=== PATIENT | male | born 1995 | race Caucasian/White ===

== ENCOUNTER 2017-03-16 12:15 | Emergency (ER) | payer OTHER ==
[~2017-03-16] VITALS: Ht 177.8 cm; Wt 94.3 kg
[2017-03-16 12:19] VITALS: BP 122/89
--- NOTE | 2017-03-16 13:13 | NUR ---
PT AMBULATED TO BED 7 AT THIS TIME.
--- NOTE | 2017-03-16 13:15 | NUR ---
22M BIB FAMILY C/O RIGHT INGUINAL AREA PAIN, ACHING, NON-RADIATING, 1/ X 2 DAYS; PT DENIES PAIN OR INJURY TO SITE AT THIS TIME; PT C/O CONSTIPATION X 3 DAYS, BUT DENIES VOMITING/DIARRHEA AT THIS TIME; ABDOMEN SOFT, NON-TENDER, ACTIVE BOWEL SOUNDS X 4 QUADRANTS; PT A&OX4, PERRLA, BL LUNG SOUNDS CLEAR, RR EVEN/UNLABORED, SKIN IS WARM/DRY/INTACT AT THIS TIME; STEADY GAIT; PT RESTING IN BED W/ HOB ELEVATED AND IN LOWEST POSITION; POSITIONED FOR COMFORT; ER MD MADE AWARE OF STATUS. WILL CONTINUE TO MONITOR.
--- NOTE | 2017-03-16 13:51 | NUR ---
ER MD DR. RAYMUNDO EVALUATING PT AT BEDSIDE.
--- NOTE | 2017-03-16 14:00 | NUR ---
PT TAKEN TO CT VIA W/C ACCOMPANIED BY [facility] AT THIS TIME.
[2017-03-16] MEDS ORDERED: ONDANSETRON 4 MG ODT PO ONE (14:40)
[2017-03-16] MEDS ORDERED: HYDROmorphone 1 MG/ML AMP IVP ONE (14:40)
--- NOTE | 2017-03-16 15:00 | NUR ---
Patient appears to be resting comfortably in bed. Vital Signs within normal limits. Respirations even and unlabored. NO ACUTE DISTRESS NOTED AT THIS TIME. WILL CONTINUE TO MONITOR
--- NOTE | 2017-03-16 15:00 | NUR ---
Note jennifer in ED - 03/16/17 at 1619 by MEDHARI RPatient appears to be resting comfortably in bed. Vital Signs within normal limits. Respirations even and unlabored. NO ACUTE DISTRESS NOTED AT THIS TIME. WILL CONTINUE TO MONITOR.
--- NOTE | 2017-03-16 16:18 | NUR ---
REPORT GIVEN TO NAOMY RETANA AT [facility] AT THIS TIME.
[2017-03-16 16:27] VITALS: BP 111/70
--- NOTE | 2017-03-16 16:27 | NUR ---
Patient to be transferred to [facility]. Is being transferred due to INSURANCE REQUEST. Receiving facility has accepting physician and available space. ER physician has signed transfer form. Patient or responsible alliance party has agreed to transfer and signed form. Patient belongings inventoried and will be sent with patient. Copy of nursing notes, lab reports, EKG, Physicians Orders and X-rays to be sent with patient. Report called to NAOMY RETANA at receiving facility. [facility] ambulance service has been called for transfer. [facility] TRANSFERRING PT VIA GURNEY TO [facility] AT THIS TIME.
== END 2017-03-16 16:27 | disposition short-term general hospital (02) ==
LOC: MED 12:15
DX: K35.80 Unspecified acute appendicitis (principal); K59.00 Constipation, unspecified
CPT/HCPCS: 36415; 74176; 80053; 81001; 82150; 83690; 85025; 96374; 99285; J1170; S0119

== ENCOUNTER 2023-04-30 13:17 | Emergency (ER) | payer OTHER ==
[~2023-04-30] VITALS: Ht 175.3 cm; Wt 119.7 kg
[2023-04-30 13:27] VITALS: BP 122/81; PULSE 84; RESP 16; TEMP 98.8; O2SAT 98
[2023-04-30] MEDS ORDERED: MAGN296S68 PO (13:30)
--- NOTE | 2023-04-30 13:41 | NUR ---
Patient discharged with v/s stable. Written and verbal after care instructions given and explained. Patient alert, oriented and verbalized understanding of instructions. Ambulatory with steady gait. All questions addressed prior to discharge. ID band removed. Patient advised to follow up with PMD. Rx of MAGNESIUM CITRATE given. Patient educated on indication of medication including possible reaction and side effects. Opportunity to ask questions provided and answered.
== END 2023-04-30 13:41 | disposition home or self-care (01) ==
LOC: MED 13:17
DX: K59.00 Constipation, unspecified (principal); Z79.899 Other long term (current) drug therapy
CPT/HCPCS: 99282

== ENCOUNTER 2023-05-04 21:16 | Emergency (ER) | payer OTHER ==
[~2023-05-04] VITALS: Ht 175.3 cm; Wt 120.2 kg
[~2023-05-04 21:16] MED LIST: MAGN296S68 PO
[2023-05-04 21:20] VITALS: BP 130/59; PULSE 90; RESP 17; TEMP 98.5; O2SAT 98
--- NOTE | 2023-05-04 21:23 | NUR ---
TO LOBBY A/ W BED AMBULATORY
[2023-05-04] MEDS ORDERED: KETOROLAC 30 MG/ML VIAL IM ONE (22:55)
[2023-05-04] MEDS ORDERED: PANT40EC PO (23:17)
[2023-05-04] MEDS ORDERED: IBUP-2213 PO (23:17)
[2023-05-04 23:24] VITALS: BP 130/59; PULSE 90; RESP 17; TEMP 98.5; O2SAT 98
--- NOTE | 2023-05-04 23:24 | NUR ---
Patient discharged with v/s stable. Written and verbal after care instructions given and explained. Patient alert, oriented and verbalized understanding of instructions. Ambulatory with steady gait. All questions addressed prior to discharge. ID band removed. Patient advised to follow up with PMD. Rx given to pt. Patient educated on indication of medication including possible reaction and side effects. Opportunity to ask questions provided and answered.
== END 2023-05-04 23:24 | disposition home or self-care (01) ==
LOC: MED 21:16
DX: A08.4 Viral intestinal infection, unspecified (principal); Z79.899 Other long term (current) drug therapy; Z90.49 Acquired absence of other specified parts of digestive tract
CPT/HCPCS: 93005; 96372; 99283; J1885